=== PATIENT | female | born 1940 | race Caucasian/White ===

== ENCOUNTER 2019-07-15 12:27 | Inpatient (IN) ==
[~2019-07-15 12:27] MED LIST: Total Joint Mixture (50 ml) IR ONE
[2019-07-15] MEDS ORDERED: Clindamycin 900 MG/50 ML 900 MG/50 ML IV.SOLN IVPB ONE ×2 (12:46→15:49)
[2019-07-15] MEDS ORDERED: Ringers Solution, Lactated 1,000 ML IVC SCH ×2 (13:00→19:56)
[2019-07-15] MEDS ORDERED: Ethanol\\Acetic Acid\\Na Ace\\Ben 1,000 ML IRRIG.SOLN IR ONE (13:12)
[2019-07-15] MEDS ORDERED: *HR* Labetalol 20 MG/4 ML SYRINGE IVP PRN (13:14)
[2019-07-15] MEDS ORDERED: Ondansetron 4 MG/2 ML VIAL IVP PRN ×2 (13:14→19:56)
[2019-07-15] MEDS ORDERED: *HR* Promethazine 25 MG/ML VIAL IVP PRN ×2 (13:14→19:56)
[2019-07-15] MEDS ORDERED: Gabapentin 100 MG CAPSULE PO ONE (13:14)
[2019-07-15] MEDS ORDERED: Lidocaine -MPF 2% 2 ML VIAL ONE (14:21)
[2019-07-15] MEDS ORDERED: *HR* Midazolam HCl 2 MG/2 ML VIAL ONE (14:57)
[2019-07-15] MEDS ORDERED: *HR* FentaNYL (PF) 100 MCG/2 ML VIAL ONE ×2 (14:57→16:17)
[2019-07-15] MEDS ORDERED: Propofol 500 MG/50 ML INFUS..BTL ONE (14:59)
[2019-07-15] MEDS ORDERED: Ropivacaine/PF 0.5% 30 ML VIAL ONE (15:11)
[2019-07-15] MEDS ORDERED: Tranexamic Acid 1,000 MG/10 ML VIAL ONE (16:05)
[2019-07-15] MEDS ORDERED: *HR* HYDROmorphone (PF) 1 MG/ML SYRINGE IVP PRN (17:44)
[2019-07-15] MEDS ORDERED: *HR* OxyCODONE Immed Rel 5 MG TABLET PO ONE (17:48)
[2019-07-15 18:30] LABS: Hematocrit 39.2 % (35.3-44.9)
[2019-07-15] MEDS ORDERED: Sennosides 8.6 MG TABLET PO PRN (19:56)
[2019-07-15] MEDS ORDERED: Naloxone 0.4 MG/ML INJ IVP PRN (19:56)
[2019-07-15] MEDS ORDERED: MOM Conc 10 ML UD.LIQ PO PRN (19:56)
[2019-07-15] MEDS: Ascorbic Acid 500 MG TABLET PO SCH (20:14)
[2019-07-15] MEDS: *HR* OxyCODONE Immed Rel 5 MG TABLET PO PRN (20:20)
[2019-07-15] MEDS: Clindamycin 900 MG/50 ML 900 MG/50 ML IV.SOLN IVPB SCH (23:28)
[2019-07-16] MEDS: HYDROcodone BIT/Homatropine 5 MG TABLET PO PRN ×3 (04:50→21:18)
[2019-07-16 06:38] LABS: Basophils % 0.1 %; Hematocrit 36.6 % (35.3-44.9); Hemoglobin 11.8 g/dL (11.5-15.4); Immature Granulocytes % 0.3 % (0-4); Lymphocytes # 0.7 K/mcL (0.6-4.6); Lymphocytes % 8.4 %; Mean Corpuscular HGB Conc 32.2 g/dL (31.6-35.5); Mean Corpuscular Hemoglobin 30.2 pg (28.0-33.3); Mean Corpuscular Volume 93.6 fL (83.0-100.0); Mean Platelet Volume 10.6 fL (9.4-12.4); Monocytes # 0.4 K/mcL (0.0-1.3); Monocytes % 4.1 %; Neutrophils # 7.6 K/mcL (1.6-8.9); Platelet Count 230 K/mcL (140-400); Red Blood Count 3.91 M/mcL (3.82-4.97); Red Cell Distribution Width 13.2 % (11.5-14.5); Segmented Neutrophils % 87.1 %; White Blood Count 8.7 K/mcL (4.3-11.1)
[2019-07-16] MEDS: *HR* OxyCODONE Immed Rel 5 MG TABLET PO PRN ×2 (06:53→23:26)
[2019-07-16 07:00] LABS: BUN/Creatinine Ratio 22 (6-26); Blood Urea Nitrogen 24 mg/dL (8-23); Calcium 8.9 mg/dL (8.6-10.3); Carbon Dioxide 24 mEq/L (23-29); Chloride 102 mEq/L (98-107); Glucose 148 mg/dL (70-105); Osmolality,Calculated 295 (280-300); Potassium 4.6 mEq/L (3.5-5.1); Sodium 139 mEq/L (136-145); eGFR For African Americans > 60 (> 60); eGFR For Non-African Americans 50 (> 60)
[2019-07-16] MEDS: Ascorbic Acid 500 MG TABLET PO SCH ×2 (07:35→17:24)
[2019-07-16] MEDS: Clindamycin 900 MG/50 ML 900 MG/50 ML IV.SOLN IVPB SCH (07:36)
[2019-07-16] MEDS: Aspirin Enteric Coated 81 MG Tablet PO SCH (07:36)
[2019-07-16] MEDS: Multivit/Ca/Min/Fe/FA 1 TAB TABLET PO SCH (07:36)
[2019-07-16] MEDS ORDERED: Aspirin Enteric Coated 81 MG Tablet PO SCH (09:00)
[2019-07-16] MEDS ORDERED: Ondansetron ODT 4 MG TAB.RAPDIS SL PRN (23:22)
[2019-07-17] MEDS: HYDROcodone BIT/Homatropine 5 MG TABLET PO PRN ×2 (03:13→18:19)
[2019-07-17 06:06] LABS: Basophils # 0.1 K/mcL (0.0-0.2); Basophils % 0.5 %; Eosinophils # 0.1 K/mcL (0.0-0.6); Eosinophils % 1.3 %; Hematocrit 34.5 % (35.3-44.9); Hemoglobin 11.2 g/dL (11.5-15.4); Immature Granulocytes % 0.4 % (0-4); Lymphocytes # 1.7 K/mcL (0.6-4.6); Lymphocytes % 16.7 %; Mean Corpuscular HGB Conc 32.5 g/dL (31.6-35.5); Mean Corpuscular Hemoglobin 30.3 pg (28.0-33.3); Mean Corpuscular Volume 93.2 fL (83.0-100.0); Mean Platelet Volume 9.8 fL (9.4-12.4); Neutrophils # 7.2 K/mcL (1.6-8.9); Platelet Count 254 K/mcL (140-400); Red Cell Distribution Width 13.3 % (11.5-14.5); Segmented Neutrophils % 71.1 %; White Blood Count 10.1 K/mcL (4.3-11.1)
[2019-07-17 06:26] LABS: BUN/Creatinine Ratio 24 (6-26); Blood Urea Nitrogen 25 mg/dL (8-23); Calcium 8.6 mg/dL (8.6-10.3); Carbon Dioxide 28 mEq/L (23-29); Chloride 102 mEq/L (98-107); Glucose 130 mg/dL (70-105); Osmolality,Calculated 292 (280-300); Potassium 4.1 mEq/L (3.5-5.1); Sodium 138 mEq/L (136-145); eGFR For African Americans > 60 (> 60); eGFR For Non-African Americans 51 (> 60)
[2019-07-17] MEDS: Aspirin Enteric Coated 81 MG Tablet PO SCH (08:36)
[2019-07-17] MEDS: Ascorbic Acid 500 MG TABLET PO SCH ×2 (08:36→18:17)
[2019-07-17] MEDS: *HR* OxyCODONE Immed Rel 5 MG TABLET PO PRN ×2 (08:36→13:41)
[2019-07-17] MEDS: Multivit/Ca/Min/Fe/FA 1 TAB TABLET PO SCH (08:36)
[2019-07-17] MEDS: cephALEXin 250 MG CAPSULE PO SCH ×3 (10:36→21:25)
[2019-07-17] MEDS: Doxycycline 100 MG CAPSULE PO SCH ×2 (10:36→18:17)
[2019-07-17] MEDS: Apixaban 5 MG TABLET PO SCH ×2 (15:00→21:25)
[2019-07-18] MEDS: Doxycycline 100 MG CAPSULE PO SCH ×2 (06:09→18:02)
[2019-07-18] MEDS: *HR* OxyCODONE Immed Rel 5 MG TABLET PO PRN ×2 (06:09→20:54)
[2019-07-18] MEDS: HYDROcodone BIT/Homatropine 5 MG TABLET PO PRN (09:27)
[2019-07-18] MEDS: Apixaban 5 MG TABLET PO SCH ×2 (09:27→20:54)
[2019-07-18] MEDS: Ascorbic Acid 500 MG TABLET PO SCH ×2 (09:28→16:23)
[2019-07-18] MEDS: Multivit/Ca/Min/Fe/FA 1 TAB TABLET PO SCH (09:28)
[2019-07-18] MEDS: cephALEXin 250 MG CAPSULE PO SCH ×3 (09:28→20:54)
[2019-07-19] MEDS: Doxycycline 100 MG CAPSULE PO SCH (05:50)
[2019-07-19 07:30] VITALS: BP 155/80
[2019-07-19] MEDS: *HR* OxyCODONE Immed Rel 5 MG TABLET PO PRN (08:12)
[2019-07-19] MEDS: cephALEXin 250 MG CAPSULE PO SCH (08:12)
[2019-07-19] MEDS: Multivit/Ca/Min/Fe/FA 1 TAB TABLET PO SCH (08:12)
[2019-07-19] MEDS: Apixaban 5 MG TABLET PO SCH (08:12)
[2019-07-19] MEDS: Ascorbic Acid 500 MG TABLET PO SCH (08:12)
== END 2019-07-19 11:40 | DRG 468 ==
LOC: 3NENU 12:27 → SAMDAY 12:27 → 3NENU 12:30
PROVIDERS: ADMIT Orthopaedic Surgery; ATTEND Orthopaedic Surgery

== ENCOUNTER 2019-08-06 13:35 | Observation (INO) ==
[2019-08-06] MEDS ORDERED: Naloxone 0.4 MG/ML INJ IVP PRN (17:17)
[2019-08-06] MEDS ORDERED: Aspirin 325 MG TABLET PO ONE (17:30)
[2019-08-06] MEDS ORDERED: Ibuprofen 800 MG TABLET PO PRN (17:44)
[2019-08-06] MEDS ORDERED: 0.9 % Sodium Chloride 1,000 ML IVC SCH (18:00)
[2019-08-06] MEDS: Apixaban 5 MG TABLET PO SCH (18:30)
[2019-08-07 02:03] LABS: Basophils # 0.1 K/mcL (0.0-0.2); Basophils % 0.7 %; Eosinophils # 0.4 K/mcL (0.0-0.6); Eosinophils % 4.4 %; Hematocrit 33.1 % (35.3-44.9); Hemoglobin 10.6 g/dL (11.5-15.4); Immature Granulocytes % 0.2 % (0-4); Lymphocytes # 1.8 K/mcL (0.6-4.6); Lymphocytes % 19.7 %; Mean Corpuscular Hemoglobin 29.4 pg (28.0-33.3); Mean Corpuscular Volume 91.9 fL (83.0-100.0); Mean Platelet Volume 9.4 fL (9.4-12.4); Monocytes # 0.7 K/mcL (0.0-1.3); Monocytes % 8.2 %; Platelet Count 357 K/mcL (140-400); Red Cell Distribution Width 13.4 % (11.5-14.5); Segmented Neutrophils % 66.8 %
[2019-08-07 02:22] LABS: BUN/Creatinine Ratio 18 (6-26); Blood Urea Nitrogen 18 mg/dL (8-23); Calcium 8.8 mg/dL (8.6-10.3); Carbon Dioxide 25 mEq/L (23-29); Chloride 108 mEq/L (98-107); Glucose 117 mg/dL (70-105); Magnesium 2.2 mg/dL (1.6-2.6); Osmolality,Calculated 293 (280-300); Potassium 3.6 mEq/L (3.5-5.1); Sodium 140 mEq/L (136-145); eGFR For African Americans > 60 (> 60); eGFR For Non-African Americans 55 (> 60)
[2019-08-07] MEDS ORDERED: Morphine Sulfate 2 MG/ML SYRINGE IVP ONE (02:54)
[2019-08-07] MEDS: Apixaban 5 MG TABLET PO SCH ×2 (11:10→20:44)
[2019-08-07] MEDS ORDERED: *HR* OxyCODONE Immed Rel 5 MG TABLET PO PRN (11:12)
[2019-08-07] MEDS: Ringers Solution, Lactated 1,000 ML IVC SCH (12:59)
[2019-08-08] MEDS: Ringers Solution, Lactated 1,000 ML IVC SCH (01:38)
[2019-08-08 10:06] VITALS: BP 141/80
[2019-08-08] MEDS: Apixaban 5 MG TABLET PO SCH (10:56)
== END 2019-08-08 12:30 | disposition home health service (06) ==
LOC: 3NENU → SUATTDRO 16:24
PROVIDERS: ADMIT Internal Medicine; ATTEND Internal Medicine